=== PATIENT | male | born 1995 | race Two or more races ===

== ENCOUNTER 2023-07-23 18:06 | Emergency (ER) | payer BC ==
[~2023-07-23] VITALS: Ht 167.6 cm; Wt 82.8 kg
[2023-07-23 19:10] VITALS: BP 139/87; PULSE 74; RESP 16; O2SAT 99
== END 2023-07-23 19:57 | disposition left against medical advice (07) ==
LOC: ER 18:06
DX: S81.012A Laceration without foreign body, left knee, initial encounter (principal); Z53.21 Procedure and treatment not carried out due to patient leaving prior to being seen by health care provider; V87.8XXA Person injured in other specified noncollision transport accidents involving motor vehicle (traffic), initial encounter; Y93.9 Activity, unspecified; Y92.89 Other specified places as the place of occurrence of the external cause; Y99.8 Other external cause status